=== PATIENT | male | born 1975 | race Caucasian/White ===

== ENCOUNTER 2017-08-26 08:15 | Emergency (ER) | payer SELFPAY ==
--- NOTE | 2017-08-26 08:18 | ER Report ---
History and Physical Time Seen By MD: 08:25 HPI/ROS CHIEF COMPLAINT: Epigastric abdominal pain since last evening HISTORY OF PRESENT ILLNESS: Patient is a 42-year-old male here with complaints of periumbilical abdominal pain and cramping sensation since yesterday evening. Patient does have a history of right inguinal hernia repair which is not currently bothering the patient. Patient reports chills but has been afebrile since time of onset. He does report nausea without vomiting. She denies chest pain, shortness breath, fevers, hematuria, melena, hematochezia. REVIEW OF SYSTEMS: Constitutional: No fever, + chills. Eyes: No discharge. ENT: No sore throat. Cardiovascular: No chest pain, no palpitations. Respiratory: No cough, no shortness of breath. Gastrointestinal: + periumbilical abdominal pain, no vomiting, + nausea Genitourinary: No hematuria. Musculoskeletal: No back pain. Skin: No rashes. Neurological: No headache. Allergies: Coded Allergies: No Known Drug Allergies (Unverified , 08/26/17) Home Meds Active Scripts Oxycodone Hcl/Acetaminophen (OXYCODONE-ACETAMINOPHEN 5-325) 1 Each Tablet, 1 EACH PO Q6-8H for PAIN for 4 Days, #10 TAB Prov:BRI VARGAS DO 08/26/17 Ondansetron (ZOFRAN ODT) 4 Mg Tab.rapdis, 4 MG PO Q6H Y for NAUSEA/VOMITING, # 20 TAB.CHRISTIAN 0 Refills Prov:BRI VARGAS DO 08/26/17 Constitutional Vital Sign - Last 24 Hours 08/26/17 08/26/17 08/26/17 08/26/17 08:17 08:18 08:30 08:35 Temp 97.4 Pulse 49 44 Resp 16 B/P (MAP) 109/68 109/65 (80) 115/80 (92) Pulse Ox 98 96 O2 Delivery Room Air 08/26/17 08/26/17 08/26/17 08/26/17 08:45 08:50 08:55 09:15 Pulse 55 59 54 47 Pulse Ox 95 97 98 08/26/17 08/26/17 08/26/17 08/26/17 09:19 09:30 09:45 10:00 Pulse 50 47 50 B/P (MAP) 105/63 (77) Pulse Ox 98 98 98 O2 Flow Rate 2.0 08/26/17 08/26/17 08/26/17 08/26/17 10:05 10:20 10:30 10:35 Pulse 46 42 45 B/P (MAP) 96/68 (77) Pulse Ox 98 100 100 08/26/17 08/26/17 08/26/17 08/26/17 10:40 10:45 10:49 10:50 Pulse 49 45 49 B/P (MAP) 99/73 (82) Pulse Ox 99 98 99 Intake and Output 08/26/17 08/26/17 08/27/17 15:00 23:00 07:00 Intake Total 1000 ml Balance 1000 ml Physical Exam General Appearance: The patient is alert, has no immediate need for airway protection and no signs of toxicity. + moderate distress due to pain Eyes: Pupils equal and round no pallor or injection. ENT, Mouth: Mucous membranes are moist. Respiratory: There are no retractions, lungs are clear to auscultation. Cardiovascular: Regular rate and rhythm. Gastrointestinal: Abdomen is soft + TTP periumbilical distribution, no masses, bowel sounds normal. Neurological: No focal deficits Skin: Warm and dry, no rashes. Musculoskeletal: Neck is supple non tender. Extremities are nontender, nonswollen and have full range of motion. DIFFERENTIAL DIAGNOSIS: After history and physical exam differential diagnosis was considered for abdominal pain including but not limited to appendicitis, cholecystitis, gastritis and urinary tract infection, incarcerated hernia Medical Decision Making Data Points Result Diagram: 08/26/17 0829 08/26/17 0829 Laboratory Hematology Test 08/26/17 08:29 08/26/17 10:20 Red Blood Count 5.10 M/uL (4.00-5.60) Mean Corpuscular Volume 92.0 fL (80.0-96.0) Mean Corpuscular Hemoglobin 32.0 pg (26.0-33.0) Mean Corpuscular Hemoglobin Concent 34.8 g/dL (32.0-36.0) Red Cell Distribution Width 13.4 % (11.5-14.5) Mean Platelet Volume 9.0 fL (7.2-11.1) Neutrophils (%) (Auto) 72.4 % (39.4-72.5) Lymphocytes (%) (Auto) 21.2 % (17.6-49.6) Monocytes (%) (Auto) 5.2 % (4.1-12.4) Eosinophils (%) (Auto) 0.6 % (0.4-6.7) Basophils (%) (Auto) 0.6 % (0.3-1.4) Nucleated RBC Relative Count (auto) 0.0 /100WBC Neutrophils # (Auto) 4.5 K/uL (2.0-7.4) Lymphocytes # (Auto) 1.3 K/uL (1.3-3.6) Monocytes # (Auto) 0.3 K/uL (0.3-1.0) Eosinophils # (Auto) 0.0 K/uL (0.0-0.5) Basophils # (Auto) 0.0 K/uL (0.0-0.1) Nucleated RBC Absolute Count (auto) 0.00 K/uL Sodium Level 139 mmol/L (137-145) Potassium Level 3.9 mmol/L (3.5-5.0) Chloride Level 101 mmol/L (98-107) Carbon Dioxide Level 27 mmol/L (22-30) Blood Urea Nitrogen 15 mg/dl (9-21) Creatinine 1.00 mg/dl (0.66-1.25) Glomerular Filtration Rate Calc > 60.0 Random Glucose 98 mg/dl (75-110) Lactate 1.2 mmol/L (0.7-2.1) Calcium Level 9.5 mg/dl (8.4-10.2) Total Bilirubin 1.0 mg/dl (0.2-1.3) Aspartate Amino Transf (AST/SGOT) 21 U/L (0-35) Alanine Aminotransferase (ALT/SGPT) 26 U/L (0-56) Alkaline Phosphatase 77 U/L (0-126) Total Protein 7.5 gm/dl (6.3-8.2) Albumin 4.5 g/dl (3.5-5.0) Lipase 90 U/L (23-300) Urine Color Yellow Urine Clarity Clear Urine pH 5.0 pH (4.8-9.5) Urine Specific Gay S3 Urine Protein Negative mg/dL (NEGATIVE) Urine Glucose (UA) Negative mg/dL (NEGATIVE) Urine Ketones 20 mg/dL (NEGATIVE) Urine Blood Negative (NEGATIVE) Urine Nitrite Negative (NEGATIVE) Urine Bilirubin Negative (NEGATIVE) Urine Urobilinogen Negative mg/dL (0.2-1.9) Urine Leukocyte Esterase Negative (NEGATIVE) Urine RBC None /HPF (0-2/HPF) Urine WBC <1 /HPF (0-5/HPF) Urine Squamous Epithelial Cells Few /LPF (</=FEW) Urine Bacteria Negative /HPF (NONE-FEW) Urine Mucus Few /HPF (NONE-FEW) Chemistry Test 08/26/17 08:29 08/26/17 10:20 White Blood Count 6.3 k/uL (4.5-11.0) Red Blood Count 5.10 M/uL (4.00-5.60) Hemoglobin 16.3 g/dL (14.0-18.0) Hematocrit 47.0 % (42.0-52.0) Mean Corpuscular Volume 92.0 fL (80.0-96.0) Mean Corpuscular Hemoglobin 32.0 pg (26.0-33.0) Mean Corpuscular Hemoglobin Concent 34.8 g/dL (32.0-36.0) Red Cell Distribution Width 13.4 % (11.5-14.5) Platelet Count 148 K/uL (150-450) Mean Platelet Volume 9.0 fL (7.2-11.1) Neutrophils (%) (Auto) 72.4 % (39.4-72.5) Lymphocytes (%) (Auto) 21.2 % (17.6-49.6) Monocytes (%) (Auto) 5.2 % (4.1-12.4) Eosinophils (%) (Auto) 0.6 % (0.4-6.7) Basophils (%) (Auto) 0.6 % (0.3-1.4) Nucleated RBC Relative Count (auto) 0.0 /100WBC Neutrophils # (Auto) 4.5 K/uL (2.0-7.4) Lymphocytes # (Auto) 1.3 K/uL (1.3-3.6) Monocytes # (Auto) 0.3 K/uL (0.3-1.0) Eosinophils # (Auto) 0.0 K/uL (0.0-0.5) Basophils # (Auto) 0.0 K/uL (0.0-0.1) Nucleated RBC Absolute Count (auto) 0.00 K/uL Glomerular Filtration Rate Calc > 60.0 Lactate 1.2 mmol/L (0.7-2.1) Calcium Level 9.5 mg/dl (8.4-10.2) Total Bilirubin 1.0 mg/dl (0.2-1.3) Aspartate Amino Transf (AST/SGOT) 21 U/L (0-35) Alanine Aminotransferase (ALT/SGPT) 26 U/L (0-56) Alkaline Phosphatase 77 U/L (0-126) Total Protein 7.5 gm/dl (6.3-8.2) Albumin 4.5 g/dl (3.5-5.0) Lipase 90 U/L (23-300) Urine Color Yellow Urine Clarity Clear Urine pH 5.0 pH (4.8-9.5) Urine Specific Gay S3 Urine Protein Negative mg/dL (NEGATIVE) Urine Glucose (UA) Negative mg/dL (NEGATIVE) Urine Ketones 20 mg/dL (NEGATIVE) Urine Blood Negative (NEGATIVE) Urine Nitrite Negative (NEGATIVE) Urine Bilirubin Negative (NEGATIVE) Urine Urobilinogen Negative mg/dL (0.2-1.9) Urine Leukocyte Esterase Negative (NEGATIVE) Urine RBC None /HPF (0-2/HPF) Urine WBC <1 /HPF (0-5/HPF) Urine Squamous Epithelial Cells Few /LPF (</=FEW) Urine Bacteria Negative /HPF (NONE-FEW) Urine Mucus Few /HPF (NONE-FEW) Urinalysis Test 08/26/17 10:20 Urine Color Yellow Urine Clarity Clear Urine pH 5.0 pH (4.8-9.5) Urine Specific Gay S3 Urine Protein Negative mg/dL (NEGATIVE) Urine Glucose (UA) Negative mg/dL (NEGATIVE) Urine Ketones 20 mg/dL (NEGATIVE) Urine Blood Negative (NEGATIVE) Urine Nitrite Negative (NEGATIVE) Urine Bilirubin Negative (NEGATIVE) Urine Urobilinogen Negative mg/dL (0.2-1.9) Urine Leukocyte Esterase Negative (NEGATIVE) Urine RBC None /HPF (0-2/HPF) Urine WBC <1 /HPF (0-5/HPF) Urine Squamous Epithelial Cells Few /LPF (</=FEW) Urine Bacteria Negative /HPF (NONE-FEW) Urine Mucus Few /HPF (NONE-FEW) ED Course/Re-evaluation ED Course Patient is a 42-year-old male here with complaints of periumbilical abdominal pain since yesterday afternoon/evening. Patient denies prior episodes of similar pain however he does admit to a right inguinal hernia repair in the past. He reports that this pain is much different than prior episodes. Patient does endorse chills but is afebrile, is nauseated without vomiting. She was given normal saline bolus, Dilaudid for analgesia, Zofran for nausea. CT scan showed no acute structural abnormalities. Labs were unremarkable. Patient was given scripts for zofran and percocet and advised to return promptly for worsening pain, fevers, blood in stools or urine, PO intolerance. Decision to Disposition Date: August 26, 2017 Decision to Disposition Time: 10:40 Depart Departure Latest Vital Signs Vital Signs Date Time Temp Pulse Resp B/P (MAP) Pulse Ox O2 Delivery O2 Flow Rate FiO2 08/26/17 10:50 49 99 08/26/17 10:49 99/73 (82) 08/26/17 09:19 2.0 08/26/17 08:17 97.4 16 Room Air Impression: Primary Impression: Abdominal pain Condition: Improved Disposition: HOME OR SELF-CARE New Scripts Oxycodone Hcl/Acetaminophen (OXYCODONE-ACETAMINOPHEN 5-325) 1 Each Tablet 1 EACH PO Q6-8H for PAIN for 4 Days, #10 TAB Prov: BRI VARGAS DO 08/26/17 Ondansetron (ZOFRAN ODT) 4 Mg Tab.rapdis 4 MG PO Q6H Y for NAUSEA/VOMITING, #20 TAB.CHRISTIAN 0 Refills Prov: BRI VARGAS DO 08/26/17 Patient Instructions: Abdominal Pain (ED), Constipation (ED) Additional Instructions: You may take 1 tablet of Zofran for nausea as needed every 6-8 hours. May take 1 tablet of Percocet every 6-8 hours as needed for pain. Please return promptly if your symptoms worsen or fail to improve. BRI VARGAS DO August 26, 2017 08:18
[2017-08-26] MEDS ORDERED: ONDANSETRON 4 MG/2 ML VIAL IVP ONE (08:30)
[2017-08-26] MEDS ORDERED: HYDROmorphone* 1 MG/ML 1 MG/ML ML IVP ONE (08:30)
[2017-08-26] MEDS ORDERED: NS(*) 0.9% 1000 ML BAG 1,000 ML IV ONE (08:30)
[2017-08-26 08:47] LABS: PLATELET COUNT, AUTOMATED 148 K/uL (150-450)
[2017-08-26] MEDS ORDERED: IOPAMIDOL 76% 75 ML INFUS BTL 75 ML ONE (09:02)
--- NOTE | 2017-08-26 09:58 | RADIOLOGY IMAGING REPORT ---
FACILITY: [facility] PATIENT NAME: Jacky Garza : 1975 MR: [id number] V: [id number] EXAM DATE: ORDERING PHYSICIAN: BRI VARGAS TECHNOLOGIST: Location: [facility] Patient: Jacky Garza : 1975 Visit/Account:[id number] Date of Sevice: 08/26/2017 Computed tomograpy abdomen and pelvis with IV contrast Indication: Epigastric abdominal pain. Comparison: None available. . Technique: Transaxial computed tomography images were obtained through the abdomen and pelvis follo wing the injection of nonionic iodinated intravenous contrast. Reformatted coronal and sagittal image s were also obtained. One of the following dose optimization techniques was utilized in the performance of this exam: Autom ated exposure control; adjustment of the mA and/or kV according to the patient's size; or use of an i terative reconstruction technique. Specific details can be referenced in the facility's radiology C T exam operational policy. Contrast: 75 ml of Isovue-370 IV contrast. Findings: Lower lung peters: Limited by patient motion. No focal infiltrate seen. There is a small hiatal herni a. Liver: No focal parenchymal abnormality of the liver. Biliary: Gallbladder is partially contracted. No evidence of biliary dilatation. Pancreas: Normal appearance. Spleen: Normal appearance. Adrenal glands: Unremarkable. Kidneys / retroperitoneum: Not optimally evaluated due to respiratory motion. Given this limitation, no definitive stones or hydronephrosis. There is symmetric renal enhancement. Bowel / peritoneum / mesenteries: There is a moderate volume of stool most pronounced within the righ t colon. Appendix is normal. No evidence of appendicitis. No small bowel dilatation or evidence of julia wel obstruction. There is trace free pelvic fluid identified which is not specific. Lymph node assessment: No pathologic adenopathy identified. Pelvic structures: Mild prostatic enlargement. Vessels: No significant atherosclerotic calcifications seen throughout a nonaneurysmal abdominal aort a and branches. Musculoskeletal / Body wall: No acute or aggressive osseous abnormality. IMPRESSION: 1. Trace, nonspecific free fluid within the pelvis. 2. Small hiatal hernia. 3. No discrete acute inflammatory process identified within the abdomen and the pelvis. 4. Moderate volume of stool within the right colon. Correlate clinically. Report Dictated By: Jason Joy at 08/26/2017 9:29 AM Report E-Signed By: Jason Joy at 08/26/2017 9:37 AM WSN:[id number]
[2017-08-26] MEDS ORDERED: ONDA4TAB PO (10:47)
[2017-08-26] MEDS ORDERED: OXYC-373 PO (10:47)
[2017-08-26 10:49] VITALS: BP 99/73
== END 2017-08-26 10:52 | disposition home or self-care (01) ==
LOC: ER 08:23
DX: R10.13 Epigastric pain (principal)
CPT/HCPCS: 74177; 81001; 83605; 83690; 85025; 96361; 96374; 96375; 99284; J1170; J2405; J7030; Q9967; 82040; 82247; 82310; 82374; 82435; 82565; 82947; 84075; 84132; 84155; 84295; 84450; 84460; 84520